=== PATIENT | female | born 1995 | race Two or more races ===

== ENCOUNTER 2020-05-28 15:45 | Emergency (ER) | payer SELFPAY ==
[2020-05-28 16:47] LABS: BASOPHILS 0.1 % (0-2); EOSINOPHILS 0.6 % (0-7); HEMOGLOBIN 13.5 g/dL (12-16); IMMATURE GRANULOCYTES 0.2 % (0-5); LYMPHOCYTES 26.6 % (15-50); MCH 26.8 pg (26.0-34.0); MCHC 33.8 g/dL (31.0-37.0); MCV 79.4 fL (80.0-100.0); MEAN PLATELET VOLUME 10.1 fL (7.4-10.4); MONOCYTES 5.2 % (2-11); NEUTROPHILS 67.3 % (40-80); PLATELET COUNT 237 10x3/uL (130-400); RBC 5.04 10x6/uL (4.00-5.40); WBC 10.1 10x3/uL (4.8-10.8)
[2020-05-28 16:58] LABS: CALC OSMOLALITY 252 mosm/kg (275-300); CALCIUM 9.1 mg/dL (8.5-10.1); CARBON DIOXIDE 24.5 mmol/L (21.0-32.0); CHLORIDE - SERUM 101 mmol/L (98-107); CREATININE - SERUM 0.8 mg/dL (0.6-1.3); GLUCOSE 96 mg/dL (74-106); POTASSIUM - SERUM 3.6 mmol/L (3.5-5.1); SODIUM 127 mmol/L (136-145); UREA NITROGEN 8 mg/dL (7-18); eGFR NON AFRICAN AMERICAN > 90 mL/min (90-120)
[2020-05-28 16:59] LABS: HCG SERUM POSITIVE (NEGATIVE)
[2020-05-28 17:07] LABS: ALBUMIN 3.4 g/dL (3.4-5.0); ALKALINE PHOSPHATASE 75 U/L (30-120); ALT (SGPT) 20 U/L (10-68); BILIRUBIN - TOTAL 0.18 mg/dL (0.2-1.3); PROTEIN - SERUM 7.6 g/dL (6.4-8.2)
[2020-05-28 20:24] LABS: NITRITE NEGATIVE (NEGATIVE)
[2020-05-28 20:25] LABS: BACTERIA MANY HPF (NONE SEEN); BILIRUBIN NEGATIVE (NEGATIVE); KETONE LARGE mg/dL (NEGATIVE); UROBILINOGEN NORMAL mg/dL (< 2)
[2020-05-28] MEDS ORDERED: MACROBID100 MG PO (21:20)
[2020-05-28] MEDS ORDERED: KEFLEX500 MG PO (21:25)
[2020-05-28 22:20] VITALS: BP 105/68
== END 2020-05-28 22:20 | disposition home or self-care (01) ==
LOC: D.ER 15:45
PROVIDERS: Family Medicine
DX: O26.899 Other specified pregnancy related conditions, unspecified trimester (principal); N39.0 Urinary tract infection, site not specified; R10.30 Lower abdominal pain, unspecified